=== PATIENT | male | born 1990 | race Asian ===

== ENCOUNTER 2024-05-07 10:02 | Outpatient (AMB) | payer OTHER, SELFPAY ==
--- NOTE | 2024-05-07 10:09 | A.OFFPC_ITS ---
Vital Signs 05/07/24 10:18 Height 5 ft 11 in Weight 229 lb BMI 31.9 BP 120/70 Blood Pressure Location Lt brachial Position Sitting Respiration 14 Pulse 63 Pulse Source Pulse Oximeter Temp 98.6 F Temp Source Oral Pulse Oximetry (%) 97 Oxygen Delivery Method Room Air Intake Visit Reasons: GROUP BILLING COORDINATOR/Request PE Intake Note: establish care Allergies No Known Allergies Allergy (Verified 05/07/24 10:10) Medication List - Last Reconciled 05/07/24 by Charli Negro MD No Known Home Meds Tobacco use date assessed: 05/07/24 Dental Screening Dental Screen Date: 05/07/24 Did you have a dental visit in the last 12 months?: Yes Did you have a dental problem in the last 6 months where you did not have access to dental care?: No Was dental information given to patient?: No HPI GROUP BILLING COORDINATOR/Request PE HPI Details New Patient? ?? Prior PCP:? [facility] Last office visit/CPE:? 2 yrs ago Acute issue(s):? Est Care ?? PMHx:? Mildly elevated Cholesterol, PreDM SurgHx:? L 4th finger amputation at tip. FHx:?Dad: HTN. Mom: HTN. GF: DM, HTN, Thyroid. GM: Osteoporosis SocHx:? Quit Cigs 2019. EtOH None. No drugs HPI Comments History of Present Illness Details Documentation assistance for Charli Negro MD, was provided by Ruddy Mena,? Director Of Operations Home Health on 05/07/2024 at 10:48 AM EST. I, Dr. Negro, have read, observed, and verified documentation. [facility] Medical History (Updated 05/07/24 @ 10:58 by Ruddy Mena) Amputation finger Family History (Updated 05/07/24 @ 10:18 by Eugenio Medina [facility]) Mother High blood pressure Father High blood cholesterol Maternal Grandmother High blood pressure High blood cholesterol Paternal Grandfather Diabetes Cardiovascular disease Thyroid disorder Maternal Grandmother No problems noted. Maternal Grandfather Mouth cancer Social History Housing: House Patient Tobacco Use Status: Former Tobacco user e-Cigarette/Vaping Use: Never Used Second Hand Smoke Exposure: No service: No Current occupational status: employed Current occupation: [employer] Current occupational exposures/hazards: No Cognitive needs: No Hearing needs: No Vision needs: No Questionnaire PHQ-9 Over the last 2 weeks, how often have you been bothered by any of the following problems? 1. Little interest or pleasure in doing things: not at all 2. Feeling down, depressed, or hopeless: not at all 3. Trouble falling or staying asleep, or sleeping too much: not at all 4. Feeling tired or having little energy: not at all 5. Poor appetite or overeating: not at all 6. Feeling bad about yourself - or that you are a failure or have let yourself or your family down: not at all 7. Trouble concentrating on things, such as reading the newspaper or watching television: not at all 8. Moving or speaking so slowly that other people could have noticed. Or the opposite - being so fidgety or restless that you have been moving around a lot more than usual: not at all 9. Thoughts that you would be better off or of hurting yourself in some way: not at all Total score: 0 Depression Screening Interpretation: Negative Depression Screening Done: Yes 86523 - PHQ-9 Billing: Yes Source: Developed by Drs. Rafael Acosta, Sara Pride, Hugh Coe and colleagues, with an educational suraj from [employer]. Thrive Questionnaire Date Thrive assessed: 05/07/24 I am a: Patient What is your living situation today?: I have a steady place to live Within the past 12 months, did the food you bought not last and you didn't have the money to get more?: Never true Within the past 12 months, did you worry whether your food would run out before you got money to buy more?: Never true Do you have trouble paying for medicines?: No Do you have trouble getting transportation to medical appointments?: No Do you have trouble paying your heating and electricity bill?: No Do you have trouble taking care of your child, family member or friend?: No Do you have trouble with day-to-day activities such as bathing, preparing meals, shopping, managing finances, etc.?: No Are you currently unemployed and looking for a job?: No Are you interested in more education?: Yes Please select the resources that you would like help with: None Currently or been in a relationship where the following occur: No concerns reported THRIVE Score: 0 AUDIT C Alcohol Use Questionnaire (AUDIT-C) 1. How often do you have a drink containing alcohol?: Never 3. How often do you have six or more drinks on one occasion?: Never Total Score: 0 Score Reviewed/Action Taken: No ALEXIS-7 AMB Questionnaire ALEXIS-7 Date ALEXIS - 7 assessed: 05/07/24 Feeling nervous, anxious, or on edge: 0 = Not at all Not being able to stop or control worryin = Not at all Worrying too much about different things: 0 = Not at all Trouble relaxin = Not at all Being so restless that it is hard to sit still: 0 = Not at all Becoming easily annoyed or irritable: 0 = Not at all Feeling afraid as if something awful might happen: 0 = Not at all Total ALEXIS-7 score (0-4 normal; 5-9 mild; 10-14 moderate; 15-21 severe): 0 Source: Developed by Drs. Rafael Acosta, Sara Pride, Hugh Coe and colleagues, with an educational suraj from [employer]. ALEXIS-7 Assessment Billing ALEXIS-7 Assessment Tool: ALEXIS-7 Assessment 28051 Review of Systems Const Denies chills, Denies fatigue, Denies fever(s), Denies headache(s) and Denies weakness Eyes Denies change in vision ENT Denies dizziness, Denies headache(s), Denies hearing loss, Denies nasal congestion, Denies sinus pain, Denies sinus pressure and Denies sore throat Card Denies chest pain, Denies lightheadedness, Denies dyspnea and Denies other (palpitations) Resp Denies cough, Denies dyspnea and Denies wheezing GI Denies abdominal pain, Denies melena, Denies hematochezia, Denies change in bowel habits, Denies dyspepsia and Denies nausea Denies hematuria and Denies dysuria Musc Denies abnormal gait, Denies myalgias, Denies arthralgias, Denies numbness and Denies tingling Skin/Breast Denies rash, Denies unusual bruising and Denies wounds Neuro Denies abnormal gait, Denies dizziness, Denies headache(s), Denies memory loss, Denies numbness, Denies Sensory deficit (Neuro), Denies tingling and Denies weakness Psych Denies anxiety, Denies depression and Denies memory loss Endo Denies cold intolerance, Denies fatigue, Denies heat intolerance, Denies polydipsia and Denies polyuria Jae/Lymph Denies easy bleeding and Denies easy bruising Aller/Immun Denies wheezing Physical exam (Primary Care) Vital Signs: Last Vital Signs Temp 98.6 F 05/07/24 10:18 Pulse 63 05/07/24 10:18 Resp 14 05/07/24 10:18 BP 120/70 05/07/24 10:18 Pulse Ox 97 05/07/24 10:18 Oxygen Delivery Method Room Air 05/07/24 10:18 BMI result Body Mass Index 31.9 Tobacco/Smoking Status: Tobacco use Status Tobacco use date assessed 05/07/24 05/07/24 10:21 Patient Tobacco Use Status Former Tobacco user 05/07/24 10:21 e-Cigarette/Vaping Use Never Used 05/07/24 10:21 PHQ-9: PHQ-9 Score PHQ-9: Total score 0 05/07/24 10:29 Depression Screening Interpretation: Negative Thrive Assessment: Date of Thrive Assessment Date Thrive assessed 05/07/24 05/07/24 10:21 Currently or been in a relationship where the following occur: No concerns reported Const General: no acute distress, well developed, alert and awake Nutritional Appearance: well nourished Orientation/consciousness: patient oriented x3 HENMT Head: Yes normocephalic and Yes atraumatic Ears: hearing grossly normal bilaterally and TM's normal bilaterally General nose exam: Normal external nose present and Normal nares present Mouth: Normal oral and palatal mucosa present and moist mucous membranes Teeth and gingiva: dentition normal Throat: Yes posterior oropharynx normal Eyes General: appearance normal, both eyes and all related structures Pupils: Equal, round and reactive pupils present and Pupil accommodation reflex normal EOM: EOMs intact bilaterally Neck Neck: Yes normal visual inspection, Yes no lymphadenopathy and Yes trachea midline Thyroid: Thyroid normal Carotids: no bruits Lymphatic: no lymphadenopathy noted Chest Chest palpation & inspection: normal inspection of the chest Resp Effort & Inspection: normal respiratory effort Auscultation: clear to auscultation bilaterally Cardio Rate: regular rate Rhythm: regular rhythm Heart sounds: S1 normal heart sound present, S2 normal heart sound present, no gallops, no murmurs and no rubs Bruits: no abdominal aortic bruits and no carotid bruits GI Palpation (GI): No Abdominal aortic bruit present, Soft to palpation, nontender, No hepatosplenomegaly present and No Rebound tenderness present Auscultation: normal bowel sounds General: Yes no CVA tenderness Back/Spine/Pelvis Back: no CVA tenderness Cervical Spine: cervical ROM normal and No Cervical spine tenderness Thoracic/Lumbar Spine: thoraco-lumbar ROM normal, No pain with thoraco-lumbar ROM, No thoracic spinal tenderness and No lumbar spinal tenderness Skin Lesions: no lesions Rashes: no rashes Trauma: no lacerations or abrasions Wounds: no wounds Nails: normal Neuro General: patient oriented x3 Cranial nerves: Yes Equal, round and reactive pupils present Cognition (Neuro): normal cognition Gait exam (Neuro): Normal gait present Motor exam (neuro): 5/5 motor strength present throughout Sensory Exam: No Sensory deficit (Neuro) Deep tendon reflexes (DTR's): Right patellar reflex intensity grade: 2+ and Left patellar reflex intensity grade: 2+ Extrem General: Yes normal to inspection and No edema Psych Appearance: grossly normal Affect: normal affect Attitude: cooperative Thought process: Normal thought process present Coding Level of Care Code New Pt Level 3 (80541) New Pt Prev Care 18-39yr(85508 Diagnoses Adult general medical exam Z00.00 Pre-diabetes R73.03 Elevated LDL cholesterol level E78.00 GERD (gastroesophageal reflux disease) K21.9 Laboratory exam ordered as part of routine general medical examination Z00.00 Additional Codes ALEXIS-7 Assessment Billing - ALEXIS-7 Assessment Tool: ALEXIS-7 Assessment 97556 ([id number]) PHQ-9 - 14741 - PHQ-9 Billing: Yes ([id number]) Assessment & Plan Assessment & Plan (1) Adult general medical exam: Code(s): Z00.00 - Encounter for general adult medical examination without abnormal findings Category: Medical Plan: 34-year-old?male?presents?as?new?patient?for?establishment?of?care?and?complete? physical?exam Encouraged?healthy?diet?with?active?lifestyle?and?plenty?of?exercise (2) Pre-diabetes: Code(s): R73.03 - Prediabetes Category: Medical Plan: Patient?notes?history?of?pre?diabetes Check?A1c Will?follow-up?at?next?encounter (3) Elevated LDL cholesterol level: Code(s): E78.00 - Pure hypercholesterolemia, unspecified Category: Medical Plan: Patient?notes?history?of?mild?elevated?cholesterol Check?lipids (4) GERD (gastroesophageal reflux disease): Code(s): K21.9 - Gastro-esophageal reflux disease without esophagitis Category: Medical Plan: Patient?acknowledges?intermittent?GERD?on?review?of?systems Symptoms?are?about?2?times?a?month. Advised?he?avoid trigger?foods,?eating?too?close?to?bedtime?and?over?filling He?can?use?OTC?famotidine?in?anticipation?of?symptoms?or?as?treatment afterwa drds (5) Laboratory exam ordered as part of routine general medical examination: Code(s): Z00.00 - Encounter for general adult medical examination without abnormal findings Category: Medical Plan: Check?labs Orders: Orders Microalbumin, Random (w Creat) Today I10 - Essential (primary) hypertension Comprehensive Winter. Panel Fast Today Z00.00 - Encounter for general adult medical examination without abnormal findings Lipid Panel Today Z00.00 - Encounter for general adult medical examination without abnormal findings TSH reflex Free T4 Today Z00.00 - Encounter for general adult medical examination without abnormal findings UA and rflx microscopic Today Z00.00 - Encounter for general adult medical examination without abnormal findings Hemoglobin A1c Today R73.01 - Impaired fasting glucose
[2024-05-07 10:18] VITALS: BP 120/70; PULSE 63; RESP 14; TEMP 37; O2SAT 97; BMI 31.9
--- OUTSIDE RECORDS SUMMARY | 2024-05-07 11:50 | XMS_ITS | Clinical Summary ---
Author Organization [facility] Address [address] [place] [address] Care Team Providers Care Carbon Cleaner Name Role Phone Annie Hernandez [facility] Primary Care Provider [phone] Source Comments PLEASE NOTE, if this patient is a minor, it may be UNLAWFUL to discuss sensitive information that is contained in these records (such as FAMILY PLANNING, MENTAL HEALTH or SUBSTANCE ABUSE) with the minor patient's parent or other person without the patient's specific authorization.[facility] Allergies No known active allergies Medications naproxen (NAPROSYN) 500 mg tabletIndicatio ns:Pain of left arm Take 1 Tab by mouth 2 (two) times daily with a meal 60 Tab 1 9 Active hydrocortisone 2.5 % creamIndication s:Rash Apply topically 2 (two) times daily To forearms 30 g 2 0 Active Immunizations Name Administration Dates Next Due TDAP 07/24/2018 Varicella, Live Vaccine 08/09/2018 Family History Medical History Relation Name Comments High Cholesterol Father Hypertension Mother Relation Name Status Comments Father Alive Mother Alive Social History Tobacco Use Types Packs/Day Years Used Date Smoking Tobacco: Former Cigarettes Smokeless Tobacco: Never Alcohol Use Standard Drinks/Week Comments No 0 (1 standard drink = 0.6 oz pur e alcohol) Social Connections Answer Date Recorded Social Connections and Isolation 0 11/18/2018 Financial Resource Strain Answer Date R ecorded Financial Resource Strain 0 2018 Stress Answer Date Recorded Stress 0 11/18/2018 Physical Activity Answer Date Recorded Physical Activity 0 11/18/2018 Food Insecurity Answer Date Recorded Food 0 11/18/2018 Transportation Needs Answer Date Record ed Transportation 0 11/18/2018 Housing Stability Answer Date Recorded Housing 0 11/18/2018 Safety and Environment Answer Date Kodi rded Safety 0 11/18/2018 Utilities Answer Date Recorded Utilities 0 11/18/2018 Employment Answer Date Recorded Employment 0 11/18/2018 Sex and Gender Information Value Date Recorded Sex Assigned at Male 07/24/2018 8:01 AM PDT Legal Sex Male 10:19 AM PDT Gender Identity Male 07/24/2018 8:01 AM PDT Sexual Orientation Straight 07/24/2018 8: 01 AM PDT Last Filed Vital Signs Vital Sign Reading Time Taken Comments Blood Pressure 145/79 03/24/2019 2:08 PM EST Pulse 78 03/24/2019 2:08 PM EST Temperature 37.2 ??C (98.9 ??F) 03/24/2019 2:08 PM ES T Respiratory Rate 16 03/24/2019 2:08 PM EST Oxygen Saturation - - Inhaled Oxygen Concentration - - Weight 104.8 kg (231 lb) 03/24/2019 2:08 PM EST Height 177.8 cm (5' 10 ) 03/24/2019 2:08 PM EST Body Mass Index 33.15 03/24/2019 2:08 PM EST Plan of Treatment Not on file Insurance [employer] [id number] Care Teams Carbon Cleaner Relationship Specialty Start Date End Date Annie Hernandez FNP [address] [place] [address] PCP - General Internal Medicine 07/11/18
--- OUTSIDE RECORDS SUMMARY | 2024-05-07 11:50 | XMS_ITS | Clinical Summary ---
Author Organization [facility] ity Address [address] [place] [address] Care Team Providers Care Peanut Vendor Name Role Phone Unavailable Primary Care Provider Unavailabl e Social History Tobacco Use Types Packs/Day Years Used Date Smoking Tobacco: Never Assessed Sex and Gender Information Value Date Recorded Sex Assigned at Not on file Legal Sex Male 2:43 AM EST Gender Identity Not on file Sexual Orientation Not on file Plan of Treatment Health Maintenance Due Date Last Done Comments DTaP,Tdap,and Td Vaccines (1 - Tdap) 2011 Hepatitis B Vaccines (1 of 3 - 19+ 3-dose series) 2011 COVID-19 Vaccine ( - 2023-2 5 season) 2023 Influenza Vaccine (#1) 2023 Depression Screening 01/01/2024 HIV Screening 01/01/2024 Hepatitis C Screening 01/01/2024 Social Influencers of Health Screening 01/01/2024 HIB Vaccines Aged Out No longer eligi ble based on patient's age to complete this topic HPV Vaccines Aged Out No longer eligi ble based on patient's age to complete this topic Hepatitis A Vaccines Aged Out No long er eligible based on patient's age to complete this topic IPV Vaccines Aged Out No longer eligi ble based on patient's age to complete this topic MMR Vaccines Aged Out No longer eligi ble based on patient's age to complete this topic Meningococcal ACWY Vaccine Aged Out N o longer eligible based on patient's age to complete this topic Meningococcal B Vacine Aged Out No lo nger eligible based on patient's age to complete this topic Pneumococcal Vaccine: Pediat rics (0 to 5 Years) and At-Risk Patients (6 to 64 Years) Aged Out No longer eligible b ased on patient's age to complete this topic RSV Immunization Patients Un toñito 20 months Aged Out No longer eligible b ased on patient's age to complete this topic Varicella Vaccines Aged Out No longer eligible based on patient's age to complete this topic
--- OUTSIDE RECORDS SUMMARY | 2024-05-07 11:50 | XMS_ITS | Clinical Summary ---
Author Organization [facility] Address [address] [place] [address] Phone Care Team Providers Care Hand Violin Maker Name Role Phone NO PCP, , Primary Care Provider Unavailabl e [facility] Unavailable Unavailable Reason for Visit and Chief Complaint Post Op Visit/Follow Up Plan of Treatment Pending Tests Order Diagnosis Results Due Ordering P rovider Follow Up - Return to School / Work Note Shilo Rebollar MD Last Documented On 4 8:15AM ; [facility] Assessments Includes: Assessments from this encounter No Assessments Recorded Medical Equipment - Implanted Devices Includes: Current Devices No Medical Equipment Recorded Medications Administered Includes: Administered Medications from this encounter No Administered Medications Recorded Vital Signs Includes: Vital Signs from this encounter Vital Name 11/06/2023 07:57A Blood Pressure Sitting (mmHg) 146/85 Pulse Rate-Sitting (bpm) 58 Temp-Temporal 97 Weight (lb) 231 Oxygen Saturation (%) 99 Last Documented: On 11/06/2023 7:57AM ; [facility] Results Includes: Results discussed during this encounter No Results Recorded For Specified Dates History of Present Illness Includes: History of Present Illness from this encounter No History of Present Illness Recorded Social History No Social History Recorded - Smoking Status Unknown Medical History Includes: Medical History addressed during this encounter No Medical History Recorded Family History Includes: Family History addressed during this encounter No Family History Recorded Review of Systems Includes: Review of Systems from this encounter No Review of Systems Recorded Mental Status Includes: Mental Status from this encounter No Mental Status Recorded Functional Status Includes: Functional Status from this encounter No Functional Status Recorded Physical Exam Includes: Physical Exam from this encounter Encounters Encounter Provider Location Date Check-In Time Check-Out Time Diagnosis Post Op Visit/Follow Up Shilo Rebollar MD [facility] 11/06/19 24 8:00AM 8:10AM Insurance Includes: Active Insurance Policies Plan Name Member ID Group # Subscriber Relationship Effect rita Dates 1 - Self [facility] [id number] Abdirashid Kaur Self Clinical Notes Includes: Clinical Notes from this encounter * Progress note Date Encounter Last Documented by 11/06/2023 Post Op Visit/Follow Up Last doc umented on 11/06/2023; 8:15 AM, Shilo Rebollar MD; [facility], Chief Complaint CC: Left ring finger, distal phalanx crush/amputation DOI: 09/24/2023 DOS: 09/25/2023 HPI: 33-year-old [id number] 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 Most recent office visit 10/16/2023 Patient returns today overall doing well Attending OT still does complain of some hyperesthesias and hypersensitivity of the distal the distal phalanx Physical exam alert Argent nondistressed male pleasant meter affect. There is no gross deformities healing and swelling minimal hypersensitivity noted Well-healed incisions no cellulitis streaking. He has fairly normal function with regards to flexion there is no extensor lag noted May end up with a little bit of a spoon deformity on the nail overall looks good though Plan: 1. 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 OT: Continue Follow-up: 1 month Physical Findings - Vitals taken 11/06/2023 07:57 am BP-Sitting 146/85 mmHg Pulse Rate-Sitting 58 bpm Temp-Temporal 97 F Weight 231 lbs Oxygen Saturation 99 % Plan StartCited - Other Follow Up/Return to: School / Work Note EndCited
--- OUTSIDE RECORDS SUMMARY | 2024-05-07 11:50 | XMS_ITS | Clinical Summary ---
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, init 10/16/23 Dipak Nettles PA-C Last Documented On 4 11:30AM ; [facility] Assessments Includes: Assessments from this encounter No Assessments Recorded Medical Equipment - Implanted Devices Includes: Current Devices No Medical Equipment Recorded Medications Administered Includes: Administered Medications from this encounter No Administered Medications Recorded Results Includes: Results discussed during this encounter [...] Exam Includes: Physical Exam from this encounter No Physical Exam Recorded Encounters Encounter Provider Location Date Check-In Time Check-Out Time Diagnosis Post Op Visit/Follow Up Dipak Nettles PA-C [facility] 10/16/19 24 10:00AM 11:31AM Insurance Includes: Active Insurance Policies Plan Name Member ID Group # Subscriber Relationship Effect rita Dates 1 - [facility] [id number] Abdirashid Kaur Self Clinical Notes Includes: Clinical Notes from this encounter * Progress note Date Encounter Last Documented by 10/16/2023 Post Op Visit/Follow Up Last doc umented on 10/16/2023; 11:30 AM, Dipak Nettles PA-C; [facility], Plan StartCited - Other Follow Up/Return to: School / Work Note EndCited StartCited - 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 On 09-24-23, patient sustained a lawnmower injury to his left hand. Patient presented to [facility] ED. X- ray of left hand demonstrated Deformity of the distal aspect of the 4th digit. Comminuted fracture of the distal tuft of the 4th digit. No radiopaque foreign body. Bandaging is also noted on the distal 3rd digit without visible fracture. On 09-25-23, patient underwent revision amputation of left ring finger by Dr. Naylor. On 10-02-23, patient was seen most recently in the orthopedic clinic. At that time, patient was doing well and the wound appeared appropriate. Today, patient states he is generally doing well. Reports that he continues to have some pain in his left ring finger but this is improved from prior. States that he has been out of work since his injury. 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 Denies fevers, chills, numbness, paresthesias. Above information obtained from patient, patient's family if present, medical staff, and/or medical documentation. PHYSICAL EXAM General: Alert and cooperative, sitting comfortably on exam table, in no acute distress, accompanied by his Musculoskeletal: Left hand- mild swelling appreciated about the ring finger, suture lines about long finger and ring finger are clean/dry/intact, no surrounding ecchymosis/erythema/drainage appreciated, long and ring fingers are nontender to palpation, fires EPL/FPL/intrinsics, lacks approximately 50% of flexion of long and ring fingers, sensation intact across radian/median/ulnar distributions, appears well-perfused IMAGING N/A ASSESSMENT Patient is 3 weeks s/p lawnmower injury to left hand resulting in left ring finger amputation treated surgically. Patient is progressing well. Given the patient's lack of dexterity with his left hand, he should remain out of work at this time until he is able to improve his range of motion as there is no option for light duty. PLAN - Weightbearing: As tolerated left hand - Activity: As tolerated, being cautious of reinjury; patient has been provided a note to remain out of work - Therapy: Patient has been provided a prescription for OT to work on range of motion and desensitization therapy - Dressing/DME: Sutures were removed and wounds were covered with bandaids which should be changed as needed; patient may shower, allowing soap and water to passively wash over wounds (do not soak) without scrubbing, and be sure to pat the incision dry - Pain control: Elevate affected extremity; apply ice to affected area, 20 minutes on and 20 minutes off with a barrier between the ice and the skin; over the counter pain medication such as Tylenol or NSAID's as medically tolerated - Follow up: 2 to 3 weeks after he has been seen by OT - X-ray at follow up: N/A Above, including any imaging, discussed with and agreed to by Dr. Rebollar.
--- OUTSIDE RECORDS SUMMARY | 2024-05-07 11:51 | XMS_ITS | Clinical Summary ---
Author Organization [facility] Address [address] [place] [address] Phone Care Team Providers Care General Dentist/Owner Name Role Phone NO PCP, , Primary Care Provider Unavailabl e [facility] Unavailable Unavailable Reason for Visit and Chief Complaint [Patient Encounter] Plan of Treatment No Plan of Treatment Recorded Assessments Includes: Assessments from this encounter No [...] Location Date Check-In Time Check-Out Time Diagnosis [Patient Encounter] Tabatha Franz PA-C 09/28/2023 12:15PM 11:59PM Insurance Includes: Active Insurance Policies Plan Name Member ID Group # Subscriber Relationship Effect rita Dates 1 - [facility] [id number] Abdirashid Vincent Self Clinical Notes Includes: Clinical Notes from this encounter No Clinical Notes Recorded
--- OUTSIDE RECORDS SUMMARY | 2024-05-07 11:51 | XMS_ITS | Clinical Summary ---
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, 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 Jarrod Naylor MD Last Documented On 4 10:59AM ; [facility] Follow Up - Return to School / Work Note 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, 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 Jarrod Naylor MD Last Documented On 4 11:00AM ; [facility] Assessments Includes: Assessments from this encounter No [...] Social History Recorded - Smoking Status Unknown Procedures and Surgical History Includes: Procedures from this encounter Procedures Code Diagnosis Performing Provider Service Location Service Date X-Ray Exam Of Hand, min 3 views (Left, Left hand, Fourth Digit) 94829 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, in Jarrod Naylor MD [facility] 10/02/2023 Last Documented On 4 1:59PM ; [facility] Medical History Includes: Medical History addressed during [...] Check-Out Time Diagnosis Post Op Visit/Follow Up Jarrod Naylor MD [facility] 10/02/19 24 9:40AM 11:10AM Insurance Includes: Active Insurance Policies Plan Name Member ID Group # Subscriber Relationship Effect rita Dates 1 - [facility] [id number] Abdirashid Kaur Self Clinical Notes Includes: Clinical Notes from this encounter * Progress note Date Encounter Last Documented by 10/02/2023 Post Op Visit/Follow Up Last doc umented on 10/02/2023; 10:59 AM, Jarrod Naylor MD; [facility], Physical Findings Chief complaint: Follow-up amputation left ring finger History of Present Illness: This is a 33-year-old man who sustained a fingertip amputation of the left ring finger with a laceration of the left long and little fingers on 09/24/2023. I performed revision of amputation and repair of laceration on 09/25/2023. He has no complaints other than persistent pain. Physical exam: The dressing and splint are removed from the left upper extremity. The wounds on the long, ring, and little fingers all appear to be healing without sign of infection. Neurovascular exam is intact. The wounds are 100% viable. Imaging: None today Impression: Fingertip amputation left ring finger, laceration left long and little fingers. Plan: I instructed the patient and his and local wound care. He may perform wound cleansing and dressing changes every other day and then reapply the fiberglass splint. He is disabled from 09/24/2023 until his next visit in 2 weeks. He is going to look into light duty. He will return in 2 weeks for reexamination and probable suture removal. 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
--- OUTSIDE RECORDS SUMMARY | 2024-05-07 11:51 | XMS_ITS | Clinical Summary ---
Author Organization [facility] Address [address] [place] [address] Phone Care Team Providers Care Wet Washer Machine Name Role Phone NO PCP, , Primary Care Provider Unavailabl e [facility] Unavailable Unavailable Reason for Visit and Chief Complaint Post Op Visit/Follow Up Plan of Treatment Pending Tests Order Diagnosis Results Due Ordering P landonder Follow Up - Return to School / Work Note Sandoval Vega MD Last Documented On 4 1:19PM ; [facility] Follow Up - Return to School / Work Note Sandoval Vega MD Last Documented On 4 1:19PM ; [facility] Assessments Includes: Assessments from this encounter No Assessments Recorded Medical Equipment - Implanted Devices Includes: Current Devices No Medical Equipment Recorded Medications Administered Includes: Administered Medications from this encounter No Administered Medications Recorded Vital Signs Includes: Vital Signs from this encounter Vital Name 12/10/2023 08:10A Blood Pressure Sitting (mmHg) 143/85 Pulse Rate-Sitting (bpm) 74 Temp-Temporal 96.9 Weight (lb) 231 Oxygen Saturation (%) 99 Last Documented: On 12/10/2023 8:10AM ; [facility] Results Includes: Results discussed during this encounter [...] Includes: Review of Systems from this encounter DIAGNOSIS/ PLAN : Recent revision amputation tip of left ring finger healing well discharge I have assessed this patient today. I personally saw and examined the patient, reviewed the general history, examination, relevant vitals and medications appropriate to our specialist care. I reviewed any relevant imaging and performed the relevant medical decision making. The major facts and general medical history are as in the previous, recent records which I have reviewed. The patient presents for follow-up after revision of the amputation of his left index finger on 09-25-23. At this time he notes some scarring and hardness of the tip of the finger there is a tiny area of epithelization the middle part of the wound nailbed but this is healing closely by itself with no sign of inflammation underlying the hardness in the scar is finger is working well. Is still sensitive and tender he knows to massage this to improve it. Excellent progress clearly healing well no major issues to mobilize as tolerated and discharge. As fully as possible, I have explained the problem and its management and reviewed the patients / family agenda and all questions relevant to this problem were answered. We discussed the management plan and agreed to proceed as described above. Mansoor Vega MD [facility] surgical colleagues [facility] An electronic dictation system was use to complete this note, we apologise for any errors, please contact this office if there are questions. Mental Status Includes: Mental Status from this encounter No Mental Status Recorded Functional Status Includes: Functional Status from this encounter No Functional Status Recorded Physical Exam Includes: Physical Exam from this encounter Encounters Encounter Provider Location Date Check-In Time Check-Out Time Diagnosis Post Op Visit/Follow Up Sandoval Vega MD [facility] 12/10/19 24 8:00AM 8:47AM Insurance Includes: Active Insurance Policies Plan Name Member ID Group # Subscriber Relationship Effect rita Dates 1 - [facility] [id number] Abdirashid Kaur Self Clinical Notes Includes: Clinical Notes from this encounter * Progress note Date Encounter Last Documented by 12/10/2023 Post Op Visit/Follow Up Last doc umented on 12/11/2023; 1:23 PM, Sandoval Vega MD; [facility] Physical Findings - Vitals taken 12/10/2023 08:10 am BP-Sitting 143/85 mmHg Pulse Rate-Sitting 74 bpm Temp-Temporal 96.9 F Weight 231 lbs Oxygen Saturation 99 % Plan StartCited - Other Follow Up/Return to: School / Work Note Follow Up/Return to: School / Work Note EndCited User Defined 4 DIAGNOSIS/ PLAN : Recent revision amputation tip of left ring finger healing well discharge I have assessed this patient today. I personally saw and examined the patient, reviewed the general history, examination, relevant vitals and medications appropriate to our specialist care. I reviewed any relevant imaging and performed the relevant medical decision making. The major facts and general medical history are as in the previous, recent records which I have reviewed. The patient presents for follow-up after revision of the amputation of his left index finger on 09-25-23. At this time he notes some scarring and hardness of the tip of the finger there is a tiny area of epithelization the middle part of the wound nailbed but this is healing closely by itself with no sign of inflammation underlying the hardness in the scar is finger is working well. Is still sensitive and tender he knows to massage this to improve it. Excellent progress clearly healing well no major issues to mobilize as tolerated and discharge. As fully as possible, I have explained the problem and its management and reviewed the patients / family agenda and all questions relevant to this problem were answered. We discussed the management plan and agreed to proceed as described above. Mansoor eVga MD [facility] surgical colleagues [facility] An electronic dictation system was use to complete this note, we apologise for any errors, please contact this office if there are questions.
--- OUTSIDE RECORDS SUMMARY | 2024-05-07 11:51 | XMS_ITS ---
Author Organization [facility] Address [address] [place] [address] Phone Care Team Providers Care Associate Dentist Name Role Phone NO PCP, , Primary Care Provider [facility]ailabl [facility] Un[facility] Unavailable Plan of Treatment No Plan of Treatment Recorded Assessments Includes: Assessments for all patient encounters No Assessments Recorded Medical Equipment - Implanted Devices Includes: Current and historical Devices No Medical Equipment Recorded Medications Administered Includes: Administered Medications in patient's chart No Administered Medications Recorded Vital Signs Includes: Vital Signs from 05/07/2023 through 05/07/2024 Vital Name 12/10/2023 08:10A 11/06/2023 07: 57A Blood Pressure Sitting (mmHg) 143/85 146/85 Pulse Rate-Sitting (bpm) 74 58 Temp-Temporal 96.9 97 Weight (lb) 231 231 Oxygen Saturation (%) 99 99 Last Documented: On 12/10/2023 8:10AM ; [facility] On 11/06/2023 7:57AM ; [facility] Results Includes: Results from 05/07/2023 through 05/07/2024 No Results Recorded For Specified Dates History of Present Illness History of Present Illness not supported for this document type No History of Present Illness Recorded Social History No Social History Recorded - Smoking Status Unknown Procedures and Surgical History Includes: Procedures from 05/07/2023 through 05/07/2024 Procedures Code Diagnosis Performing Provider Service Location Service Date X-Ray Exam Of Hand, min 3 views (Left, Left hand, Fourth Digit) [id number] 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, init Jarrod Naylor MD [facility] 10/02/2023 Last Documented On 1:59PM ; [facility] Laceration Repair (Left hand, Third Digit, Seperate Procedure) [id number] 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, init Jarrod Naylor MD [facility] 09/25/2023 Last Documented On 4 11:00AM ; [facility] Amputation Of Finger/Thumb (Left hand, Fourth Digit) 63625 Partial traumatic trnsphal amputation of l rng megagr, injamey Jarrod Naylor MD [facility] 09/25/2023 Last Documented On 4 11:00AM ; [facility] Medical History Includes: Medical History in patient's chart No Medical History Recorded Family History Includes: Family History in patient's chart No Family History Recorded Review of Systems Review of Systems not supported for this document type No Review of Systems Recorded Mental Status No Mental Status Recorded Functional Status No Functional Status Recorded Physical Exam Physical Exam not supported for this document type No Physical Exam Recorded Encounters Includes: Encounters from 05/07/2023 through 05/07/2024 Encounter Provider Location Date Check-In Time Check-Out Time Diagnosis Post Op Visit/Follow Up Sandoval Vega MD [facility] 12/10/19 24 8:00AM 8:47AM Post Op Visit/Follow Up Shilo Rebollar MD [facility] 11/06/19 24 8:00AM 8:10AM Post Op Visit/Follow Up Dipak Nettles PA-C [facility] 10/16/19 24 10:00AM 11:31AM Post Op Visit/Follow Up Jarrod Naylor MD [facility] 10/02/19 24 9:40AM 11:10AM [Patient Encounter] Tabatha Franz PA-C 09/28/19 24 12:15PM 11:59PM [Patient Encounter] Tabatha Franz PA-C 09/28/19 24 12:15PM 11:59PM Insurance Includes: Active Insurance Policies Plan Name Member ID Group # Subscriber Relationship Effect rita Dates 1 - [facility] [id number] Abdirashid Kaur Karthik Clinical Notes Includes: Signed Clinical Notes starting from 03/05/2022 * Progress note Date Encounter Last Documented by 12/10/2023 Post Op Visit/Follow Up Last doc umented on 12/11/2023; 1:23 PM, Sandoval Vega MD; [facility], Physical Findings - Vitals taken 12/10/2023 08:10 [...] proceed as described above. Mansoor Vega MD [facility] surgical colleagues [facility] An electronic dictation system was use to complete this note, we apologise for any errors, please contact this office if there are questions. 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 Denies fevers, chills, numbness, paresthesias. Above information [...] with and agreed to by Dr. Rebollar. * Progress note Date Encounter Last Documented by 10/02/2023 Post Op Visit/Follow Up Last doc umented on 10/02/2023; 10:59 AM, Jarrod Naylor MD; [facility], Physical Findings Chief complaint: Follow-up amputation left [...] Partial traumatic trnsphal amputation of l rng megagr, init Follow Up/Appointment: 2 Weeks EndCited
--- OUTSIDE RECORDS SUMMARY | 2024-05-07 11:51 | XMS_ITS ---
Care Plan - [facility] Created on: May 07, 2024 Abdirashid Kaur : 1990 Sex: Male Author Organization [facility] Address [address] [place] [address] Phone Care Team Providers Care Flexo Folder Gluer Operator Name Role Phone NO PCP, , Primary Care Provider Unavailabl e [facility] Unavailable Unavailable
== END 2024-05-07 10:57 | disposition home or self-care (01) ==
PROVIDERS: PCP Family Medicine; Visit Provider Family Medicine
DX: Z00.00 Encounter for general adult medical examination without abnormal findings (principal); R73.03 Prediabetes; E78.00 Pure hypercholesterolemia, unspecified; K21.9 Gastro-esophageal reflux disease without esophagitis

== ENCOUNTER → 2024-05-07 10:02 | Outpatient (BNVA) | payer OTHER, SELFPAY | PROVIDERS: PCP Family Medicine; Visit Provider Family Medicine | DX: Z00.00 Encounter for general adult medical examination without abnormal findings (principal); R73.03 Prediabetes; E78.00 Pure hypercholesterolemia, unspecified; K21.9 Gastro-esophageal reflux disease without esophagitis | CPT/HCPCS: 96127 ==

== ENCOUNTER 2024-05-07 11:36 | Outpatient (REF) | payer OTHER, SELFPAY ==
--- OUTSIDE RECORDS SUMMARY | 2024-05-07 13:27 | XMS_ITS | Clinical Summary ---
Author Organization [employer] Address [address] [place] [address] Care Team Providers Care Cma Name Role Phone Apoorva Mack TURRET LATHE TENDER Primary Care Provider [phone] Allergies No known active allergies Medications multivitamin capsule Take 1 capsule by mouth 1 (one) time each day Active Active Problems Problem Noted Date Diagnosed Date Vitamin D deficiency 05/25/2022 Obesity (BMI 30.0-34.9) 05/24/2021 Resolved Problems Problem Noted Date Diagnosed Date Resolved Date Plantar fasciitis, bilateral 05/24/2021 05/25/2022 Immunizations Name Administration Dates Next Due COVID-19 Pfizer SARS-CoV2 mR NA PF 30mcg/0.3mL Vaccine (Purple) 03/16/2021 Influenza, trivalent (IIV3), split virus (single-dose) PF 03/01/2021 Tdap 07/24/2018 Varicella 08/09/2018 Family History Medical History Relation Comments No Known Problems Maternal Grandmother Hypertension Mother Thyroid disease Paternal Grandfather No Known Problems Paternal Grandmother Relation Status Comments Father Alive Maternal Grandfather Alive Maternal Grandmother Mother Alive Paternal Grandfather Alive Paternal Grandmother Social History Tobacco Use Types Packs/Day Years Used Date Smoking Tobacco: Former Cigarettes 2 - 2019 Smokeless Tobacco: Never Tobacco Cessation:Counseling Given: Yes Comments:Non-smoker now Alcohol Use Standard Drinks/Week Comments Never 0 (1 standard drink = 0.6 oz pur e alcohol) Social Connection and Isolation Panel [NHANES] A nswer Date Recorded In a typical week, how many times do you talk on the phone with family, friends, or neighbors? Patient declined 03/01/2020 How often do you get togethe r with friends or relatives? Patient declined 03/01/2020 How often do you attend hindu or evangelical serv ices? Patient declined 03/01/2020 Do you belong to any clubs o r organizations such as hindu groups, unions, fraternal or athletic groups, or school groups? Patient declined 03/01/2020 How often do you attend meet ings of the clubs or organizations you belong to? Patient declined 03/01/2020 Are you , , di vorced, , never , or living with a partner? Patient declined 03/01/2020 AUDIT-C Answer Date Recorded Q1: How often do you have a drink containing alc ohol? Never 03/01/2020 Average Number of Drinks Not on file 020 Frequency of Binge Drinking Not on file 09/2019 PHQ-2 Answer Date Recorded Depression Risk (PHQ2) Score 0 04/2022 Exercise Vital Sign Answer Date Recorde d On average, how many days pe r week do you engage in moderate to strenuous exercise (like a brisk walk)? Patient declined On average, how many minutes do you engage in exercise at this level? Patient declined 03/01/2020 Sex and Gender Information Value Date Recorded Sex Assigned at Not on file Legal Sex Male 2:58 PM [facility] Gender Identity Not on file Sexual Orientation Not on file Occupation Industry Job Start Date Job End Date Not on file Not on file Not on file Not on file Last Filed Vital Signs Vital Sign Reading Time Taken Comments Blood Pressure 119/75 05/25/2022 9:05 AM EST Pulse 61 05/25/2022 9:05 AM EST Temperature 36.8 ??C (98.2 ??F) 05/25/2022 9:05 AM ES T Respiratory Rate 16 03/01/2020 8:21 AM EST Oxygen Saturation 99% 05/25/2022 9:05 AM EST Inhaled Oxygen Concentration - - Weight 102 kg (223 lb 12.8 oz) 05/25/2022 9:05 A M EST Height 178.8 cm (5' 10.39 ) 05/24/2021 9:[address] Body Mass Index 31.75 05/24/2021 9:05 AM EST Plan of Treatment Health Maintenance Due Date Last Done Comments Hepatitis C Screening 1992 PHQ-9 Depression Screen 2004 ALEXIS-7 Anxiety Screen 2010 Annual Preventive Exam 05/26/2023 3, 05/24/2021, 03/01/2020, Additional history exists COVID-19 Vaccine (2 - 2023-2 5 season) 2023 03/16/2021 Influenza Vaccine (#1) 2023 03/01/2021 DTaP,Tdap,and Td Vaccines (2 - Td or Tdap) 07/24/2028 07/24/2018 RSV Vaccine (SCDM) (1 - 1-do se 75+ series) 2067 Insurance [facility] Care Teams Cma Relationship Specialty Start Date End Date Apoorva Mack NP [address] [place] [id number] PCP - General Family Medicine 05/24/21
--- OUTSIDE RECORDS SUMMARY | 2024-05-07 13:27 | XMS_ITS | Clinical Summary ---
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 [id number] Abdirashid Kaur Self Clinical Notes Includes: Clinical Notes from this encounter * Progress note Date Encounter Last Documented by 10/16/2023 Post Op Visit/Follow Up Last doc umented on 10/16/2023; 11:30 AM, Dipak Nettles PA-C; [facility], Plan StartCited - Other Follow Up/Return to: [...] to his left hand. Patient presented to [facility] ED. 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 Denies fevers, chills, numbness, paresthesias. Above information [...]
--- OUTSIDE RECORDS SUMMARY | 2024-05-07 13:28 | XMS_ITS | Clinical Summary ---
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, 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 Jarrod Naylor MD Last Documented On 4 10:59AM ; [facility] Follow Up - Return to School / Work Note 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, 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 Jarrod Naylor MD Last Documented On 4 11:00AM ; [facility] Assessments Includes: Assessments from this encounter No [...] 3 views (Left, Left hand, Fourth Digit) [id number] 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, in Jarrod Naylro MD [facility] 10/02/2023 Last Documented On 4 1:59PM ; [facility] Medical History Includes: Medical History addressed during [...] Post Op Visit/Follow Up Jarrod Naylor MD [facility] 10/02/19 24 9:40AM 11:10AM Insurance Includes: Active Insurance Policies Plan Name Member ID Group # Subscriber Relationship Effect rita Dates 1 - [facility] [id number] Abdirashid Kaur Self Clinical Notes Includes: Clinical Notes from this encounter * Progress note Date Encounter Last Documented by 10/02/2023 Post Op Visit/Follow Up Last doc umented on 10/02/2023; 10:59 AM, Jarrod Naylor MD; [facility], Physical Findings Chief complaint: Follow-up [...]
--- OUTSIDE RECORDS SUMMARY | 2024-05-07 13:28 | XMS_ITS | Clinical Summary ---
Author Organization [facility] Address [address] [place] [address] Care Team Providers Care Group Practice Pediatrician Name Role Phone Unavailable Primary Care Provider [...]
--- OUTSIDE RECORDS SUMMARY | 2024-05-07 13:28 | XMS_ITS ---
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, init Jarrod Naylor MD [facility] 10/02/2023 Last Documented On 1:59PM ; [facility] Laceration Repair (Left hand, Third Digit, Seperate Procedure) 89169 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, init Jarrod Naylor MD [facility] 09/25/2023 Last Documented On 4 11:00AM ; [facility] Amputation Of Finger/Thumb (Left hand, Fourth Digit) 71950 Partial traumatic trnsphal amputation of l rng megagr, injamey Jarrod Naylor MD [facility] 09/25/2023 Last Documented On 4 11:00AM ; [facility] Medical History Includes: Medical History in patient's [...] Post Op Visit/Follow Up Sandoval Vega MD [facility] 12/10/19 24 8:00AM 8:47AM Post Op Visit/Follow Up Shilo Rebollar MD [facility] 11/06/19 24 8:00AM 8:10AM Post Op Visit/Follow Up Dipak Nettles PA-C [facility] 10/16/19 24 10:00AM 11:31AM Post Op Visit/Follow Up Jarrod Naylor MD [facility] 10/02/19 24 9:40AM 11:10AM [Patient Encounter] Tabatha Franz PA-C 09/28/19 24 12:15PM 11:59PM [Patient Encounter] Tabatha Franz PA-C 09/28/19 24 12:15PM 11:59PM Insurance Includes: Active Insurance Policies Plan Name Member ID Group # Subscriber Relationship Effect rita Dates 1 - [facility] [id number] Abdirashid Kaur Karthik Clinical Notes Includes: Signed Clinical Notes starting from 03/05/2022 * Progress note Date Encounter Last Documented by 12/10/2023 Post Op Visit/Follow Up Last doc umented on 12/11/2023; 1:23 PM, Sandoval Vega MD; [facility], Physical Findings - Vitals taken 12/10/2023 08:10 [...] proceed as described above. Mansoor Vega MD [facility] surgical colleagues [facility] An electronic dictation system was use to complete this note, we apologise for any errors, please contact this office if there are questions. 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 Patient presented to [facility] ED. 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 Above information [...] on 10/02/2023; 10:59 AM, Jarrod Naylor MD; [facility], Physical Findings Chief complaint: Follow-up amputation left [...]
--- OUTSIDE RECORDS SUMMARY | 2024-05-07 13:28 | XMS_ITS | Clinical Summary ---
Author Organization [facility] Address [address] [place] [address] Phone Care Team Providers Care Freight Rate Analyst Name Role Phone NO PCP, , Primary Care Provider Unavailabl e [facility] Unavailable Unavailable Reason for Visit and [...] Effect rita Dates 1 - [facility] [id number] Abdirashid Vincent Self Clinical Notes Includes: Clinical Notes from this encounter No Clinical Notes Recorded
--- OUTSIDE RECORDS SUMMARY | 2024-05-07 13:28 | XMS_ITS | Clinical Summary ---
Author Organization [facility] Address [address] [place] [address] Phone Care Team Providers Care Intervention Manager Name Role Phone NO PCP, , Primary Care Provider Unavailabl e [facility] Unavailable Unavailable Reason for Visit and Chief Complaint Post Op Visit/Follow Up Plan of Treatment Pending Tests Order Diagnosis Results Due Ordering P landonder Follow Up - Return to School / Work Note Sandoval Vega MD Last Documented On 4 1:19PM ; [facility] Follow Up - Return to School / Work Note Sandoval Vega MD Last Documented On 4 1:19PM ; [facility] Assessments Includes: Assessments from this encounter [...] 99 Last Documented: On 12/10/2023 8:10AM ; [facility] Results Includes: Results discussed during this encounter [...] proceed as described above. Mansoor Vega MD [facility] surgical colleagues [facility] An [...] Post Op Visit/Follow Up Sandoval Vega MD [facility] 12/10/19 24 8:00AM 8:47AM Insurance Includes: Active Insurance Policies Plan Name Member ID Group # Subscriber Relationship Effect rita Dates 1 - [facility] [id number] Abdirashid Kaur Self Clinical Notes Includes: Clinical Notes from this encounter * Progress note Date Encounter Last Documented by 12/10/2023 Post Op Visit/Follow Up Last doc umented on 12/11/2023; 1:23 PM, Sandoval Vega MD; [facility] Physical Findings - Vitals taken 12/10/2023 08:10 [...] proceed as described above. Mansoor Vega MD [facility] surgical colleagues [facility] An electronic dictation system was use to complete this note, we apologise for any errors, please contact this office if there are questions.
--- OUTSIDE RECORDS SUMMARY | 2024-05-07 13:28 | XMS_ITS | Clinical Summary ---
Author Organization [facility] Address [address] [place] [address] Care Team Providers Care Therapeutic Support Staff Name Role Phone Annie Hernandez [facility] Primary Care Provider [phone] Source Comments PLEASE NOTE, if this patient [...] Not on file Insurance [employer] DORENE RODRIGEZ [id number] Care Teams Therapeutic Support Staff Relationship Specialty Start Date End Date Annie Hernandez FNP [address] [place] [address] PCP - General Internal Medicine 07/11/18
--- OUTSIDE RECORDS SUMMARY | 2024-05-07 13:28 | XMS_ITS | Clinical Summary ---
Author Organization [place] [facility] Address [address] [place] [address] Phone Care Team Providers Care Edge Polisher Name Role Phone NO PCP, , Primary Care Provider Unavailabl e [facility] Unavailable Unavailable Reason for Visit and Chief Complaint Post Op Visit/Follow Up Plan of Treatment Pending Tests Order Diagnosis Results Due Ordering P rovider Follow Up - Return to School / Work Note Shilo Rebollar MD Last Documented On 4 8:15AM ; [facility] Assessments Includes: Assessments from this encounter No [...] 99 Last Documented: On 11/06/2023 7:57AM ; [facility] Results Includes: Results discussed during this encounter [...] Post Op Visit/Follow Up Shilo Rebollar MD [facility] 11/06/19 24 8:00AM 8:10AM Insurance Includes: Active Insurance Policies Plan Name Member ID Group # Subscriber Relationship Effect rita Dates 1 - [facility] [id number] Abdirashid Kaur Self Clinical Notes Includes: Clinical Notes from this encounter * Progress note Date Encounter Last Documented by 11/06/2023 Post Op Visit/Follow Up Last doc umented on 11/06/2023; 8:15 AM, Shilo Rebollar MD; [facility], Chief Complaint CC: Left ring finger, distal phalanx crush/amputation DOI: 09/24/2023 DOS: 09/25/2023 HPI: 33-year-old [id number] 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 [...]
--- OUTSIDE RECORDS SUMMARY | 2024-05-07 13:28 | XMS_ITS ---
Care Plan - [facility] Created on: May 07, 2024 Abdirashid Kaur : 1990 Sex: Male Author Organization [facility] Address [address] [place] [address] Phone Care Team Providers Care Golf Instructor Name Role Phone NO PCP, , Primary Care Provider Unavailabl e [facility] Unavailable Unavailable
[2024-05-07 14:43] LABS: Appearance Urine Clear; Color Urine Yellow; Glucose Urine UA Negative (Negative); Leukocyte Esterase Urine Negative (Negative); Nitrite Urine Negative (Negative); Urine Blood Negative (Negative); Urine Ketones Negative (Negative); Urine Protein Negative (Neg-Trace)
[2024-05-07 14:51] LABS: Estimated Average Glucose 103 mg/dL; Hemoglobin A1C 135.0504 umol/L; Hemoglobin A1c % 5.2 % (<6.0); Total Hemoglobin (HGBA1C) 4063.0095 umol/L
[2024-05-07 14:55] LABS: Alanine Aminotransferase 36 U/L (0-40); Albumin Level 4.3 g/dL (3.5-5.0); Alkaline Phosphatase 82 U/L (39-117); Anion Gap 10 (12-20); Aspartate Amino Transferase 28 U/L (5-37); Bilirubin Total 1.3 mg/dL (0.0-1.0); Blood Urea Nitrogen 7 mg/dL (9-16); Calcium 8.9 mg/dL (8.4-10.2); Carbon Dioxide 24 mmol/L (22-29); Chloride 110 mmol/L (96-108); Cholesterol 169 mg/dL (<200); Estimated Glomerular Filt Rate > 60; Glucose Fasting 92 mg/dL (60-99); HDL Cholesterol 41 mg/dL (>40); LDL Cholesterol Calculated 93 mg/dL (<100); Potassium 4.1 mmol/L (3.3-5.1); Sodium 140 mmol/L (135-145); Total Protein 7.5 g/dL (6.5-8.0); Triglycerides 176 mg/dL (<150)
[2024-05-07 15:15] LABS: TSH reflex Free T4 1.57 uIU/mL (0.32-4.0)
[2024-05-07 19:47] LABS: Creatinine Urine 63.62 mg/dL; Microalbumin Urine < 5.0 mg/L
== END 2024-05-07 11:37 | disposition home or self-care (01) ==
LOC: HO.WFDLDS 11:36
PROVIDERS: Visit Provider Family Medicine
DX: Z00.00 Encounter for general adult medical examination without abnormal findings (principal); R73.01 Impaired fasting glucose; I10 Essential (primary) hypertension
CPT/HCPCS: 36415; 80053; 80061; 81003; 82043; 82570; 83036; 84443